=== PATIENT | male | born 1940 | race Caucasian/White ===

== ENCOUNTER 2020-11-15 00:48 | Inpatient (IN) | payer MEDICARE, BC ==
[2020-11-15] MEDS ORDERED: Ondansetron ODT 4 MG TAB PO PRN (02:01)
[2020-11-15] MEDS ORDERED: Acetaminophen 325 MG TAB PO PRN (02:01)
[2020-11-15] MEDS ORDERED: Potassium Chloride 20 MEQ TAB PO SCH (02:15)
[2020-11-15] MEDS ORDERED: hydrOXYzine 25 MG TAB PO PRN (03:24)
[2020-11-15 05:15] LABS: #Basophils 0.1 thou/uL (0.0-0.2); #Eosinphils 0.4 thou/uL (0.0-0.7); #Monocytes 0.6 thou/uL (0.11-0.59); #Neutrophils 6.1 thou/uL (1.40-6.50); %Basophils 0.8 % (0.0-1.0); %Eosinophils 4.7 % (0.0-10.0); %Lymphocytes 12.8 % (21.0-51.0); %Monocytes 7.6 % (0.0-10.0); %Neutrophils 74.2 % (42.0-75.0); Hemoglobin 11.4 g/dL (14.0-18.0); Mean Corpuscular HGB CONC 33.2 g/dL (32.0-36.0); Mean Corpuscular Hemoglobin 33.9 pg (27.0-31.0); Mean Platelet Volume 8.3 fL (7.4-10.4); Platelet Count 159 thou/uL (130-400); Red Blood Cell (RBC) Count 3.36 mill/uL (4.70-6.10); White Blood Cell (WBC) Count 8.2 thou/uL (4.8-10.8)
[2020-11-15 05:39] LABS: Anion Gap 13 mmol/L (10-20); BUN (Urea Nitrogen) 8 mg/dL (8.4-25.7); Calc. Creatinine Clearance 125 mL/min (70-130); Carbon Dioxide 21 mmol/L (23-31); Chloride 110 mmol/L (98-107); Glucose 92 mg/dL (83-110); Magnesium 1.7 mg/dL (1.6-2.6); Phosphorus 2.9 mg/dL (2.3-4.7); Potassium 3.5 mmol/L (3.5-5.1); Sodium 140 mmol/L (136-145)
[2020-11-15 06:03] LABS: Thyroid Stimulating Hormone 1.8261 uIU/mL (0.35-4.94)
[2020-11-15] MEDS: Lisinopril 20 MG TAB PO SCH ×2 (09:07→21:45)
[2020-11-15] MEDS: Aspirin 81 mg Enteric Coated Tablet PO SCH (09:07)
[2020-11-15] MEDS: Cyanocobalamin (Vitamin B-12) 1,000 MCG TAB PO SCH (09:07)
[2020-11-15] MEDS: Rosuvastatin 10 MG TAB PO SCH (09:07)
[2020-11-15] MEDS: Apixaban 5 MG TAB PO SCH ×2 (09:08→21:45)
[2020-11-15] MEDS: Folic Acid 1 MG TAB PO SCH (09:08)
[2020-11-15] MEDS: Multivitamin W/ Minerals 1 TAB PO SCH (09:08)
[2020-11-15] MEDS: Lactated Ringer's 1,000 ML IV SCH (18:30)
[2020-11-15] MEDS: Tamsulosin HCl 0.4 MG CAP PO SCH (21:46)
[2020-11-16] MEDS: Lactated Ringer's 1,000 ML IV SCH ×3 (02:57→23:34)
[2020-11-16] MEDS: Rosuvastatin 10 MG TAB PO SCH (09:14)
[2020-11-16] MEDS: Multivitamin W/ Minerals 1 TAB PO SCH (09:14)
[2020-11-16] MEDS: Lisinopril 20 MG TAB PO SCH ×2 (09:14→21:54)
[2020-11-16] MEDS: Apixaban 5 MG TAB PO SCH ×2 (09:15→21:55)
[2020-11-16] MEDS: Aspirin 81 mg Enteric Coated Tablet PO SCH (09:15)
[2020-11-16] MEDS: Folic Acid 1 MG TAB PO SCH (09:15)
[2020-11-16] MEDS: Cyanocobalamin (Vitamin B-12) 1,000 MCG TAB PO SCH (09:15)
[2020-11-16] MEDS: Tamsulosin HCl 0.4 MG CAP PO SCH (21:54)
[2020-11-17] MEDS: Lactated Ringer's 1,000 ML IV SCH ×2 (09:38→09:42)
[2020-11-17] MEDS: Cyanocobalamin (Vitamin B-12) 1,000 MCG TAB PO SCH (09:39)
[2020-11-17] MEDS: Lisinopril 20 MG TAB PO SCH ×2 (09:39→21:03)
[2020-11-17] MEDS: Aspirin 81 mg Enteric Coated Tablet PO SCH (09:39)
[2020-11-17] MEDS: Apixaban 5 MG TAB PO SCH ×2 (09:39→21:03)
[2020-11-17] MEDS: Rosuvastatin 10 MG TAB PO SCH (09:39)
[2020-11-17] MEDS: Folic Acid 1 MG TAB PO SCH (09:39)
[2020-11-17] MEDS: Multivitamin W/ Minerals 1 TAB PO SCH (09:39)
[2020-11-17] MEDS: Carvedilol 6.25 MG TAB PO SCH (16:56)
[2020-11-17] MEDS ORDERED: Pepto Bismol Chew TAB PO PRN (19:13)
[2020-11-17] MEDS: Tamsulosin HCl 0.4 MG CAP PO SCH (21:03)
[2020-11-18] MEDS: Carvedilol 6.25 MG TAB PO SCH ×2 (08:51→16:19)
[2020-11-18] MEDS: Cyanocobalamin (Vitamin B-12) 1,000 MCG TAB PO SCH (08:51)
[2020-11-18] MEDS: Aspirin 81 mg Enteric Coated Tablet PO SCH (08:51)
[2020-11-18] MEDS: Apixaban 5 MG TAB PO SCH ×2 (08:51→20:15)
[2020-11-18] MEDS: Folic Acid 1 MG TAB PO SCH (08:51)
[2020-11-18] MEDS: Lisinopril 20 MG TAB PO SCH ×2 (08:52→20:15)
[2020-11-18] MEDS: Multivitamin W/ Minerals 1 TAB PO SCH (08:52)
[2020-11-18] MEDS: Rosuvastatin 10 MG TAB PO SCH (08:52)
[2020-11-18] MEDS: Tamsulosin HCl 0.4 MG CAP PO SCH (20:15)
[2020-11-19 04:54] LABS: #Eosinphils 0.6 thou/uL (0.0-0.7); #Lymphocytes 1.1 thou/uL (1.20-3.40); #Monocytes 0.6 thou/uL (0.11-0.59); #Neutrophils 3.8 thou/uL (1.40-6.50); %Basophils 0.5 % (0.0-1.0); %Eosinophils 8.9 % (0.0-10.0); %Lymphocytes 18.4 % (21.0-51.0); %Monocytes 10.2 % (0.0-10.0); Hemoglobin 10.8 g/dL (14.0-18.0); Mean Corpuscular Hemoglobin 33.8 pg (27.0-31.0); Mean Platelet Volume 8.2 fL (7.4-10.4); Platelet Count 179 thou/uL (130-400); RBC Distribution Width 11.7 % (11.5-14.5); White Blood Cell (WBC) Count 6.2 thou/uL (4.8-10.8)
[2020-11-19 05:32] LABS: Anion Gap 11 mmol/L (10-20); BUN (Urea Nitrogen) 7 mg/dL (8.4-25.7); Calc. Creatinine Clearance 127 mL/min (70-130); Calcium 7.8 mg/dL (7.8-10.44); Carbon Dioxide 25 mmol/L (23-31); Chloride 106 mmol/L (98-107); Glucose 107 mg/dL (83-110); Sodium 139 mmol/L (136-145)
[2020-11-19 05:35] LABS: Potassium 2.8 mmol/L (3.5-5.1)
[2020-11-19] MEDS ORDERED: Potassium Chloride 20 MEQ TAB PO SCH ×2 (06:15→08:00)
[2020-11-19] MEDS ORDERED: Potassium Chloride 40 MEQ in Premix Bag 1 BAG IVPB SCH (06:15)
[2020-11-19] MEDS: Carvedilol 6.25 MG TAB PO SCH ×2 (08:11→16:32)
[2020-11-19] MEDS: Cyanocobalamin (Vitamin B-12) 1,000 MCG TAB PO SCH (08:12)
[2020-11-19] MEDS: Lisinopril 20 MG TAB PO SCH ×2 (08:12→21:17)
[2020-11-19] MEDS: Folic Acid 1 MG TAB PO SCH (08:12)
[2020-11-19] MEDS: Aspirin 81 mg Enteric Coated Tablet PO SCH (08:12)
[2020-11-19] MEDS: Apixaban 5 MG TAB PO SCH ×2 (08:12→21:17)
[2020-11-19] MEDS: Multivitamin W/ Minerals 1 TAB PO SCH (08:13)
[2020-11-19] MEDS: Rosuvastatin 10 MG TAB PO SCH (08:13)
[2020-11-19] MEDS ORDERED: Magnesium 2 GM/50 ML 2 GM in Premix Bag 1 BAG IVPB SCH (13:00)
[2020-11-19 15:38] LABS: Anion Gap 12 mmol/L (10-20); BUN (Urea Nitrogen) 7 mg/dL (8.4-25.7); Calc. Creatinine Clearance 115 mL/min (70-130); Calcium 8.2 mg/dL (7.8-10.44); Carbon Dioxide 23 mmol/L (23-31); Chloride 107 mmol/L (98-107); Glucose 157 mg/dL (83-110); Potassium 3.8 mmol/L (3.5-5.1); Sodium 138 mmol/L (136-145)
[2020-11-19] MEDS: Tamsulosin HCl 0.4 MG CAP PO SCH (21:17)
[2020-11-20 08:57] LABS: Anion Gap 10 mmol/L (10-20); BUN (Urea Nitrogen) 6 mg/dL (8.4-25.7); Calc. Creatinine Clearance 133 mL/min (70-130); Carbon Dioxide 26 mmol/L (23-31); Chloride 107 mmol/L (98-107); Glucose 108 mg/dL (83-110); Magnesium 1.7 mg/dL (1.6-2.6); Potassium 3.4 mmol/L (3.5-5.1); Sodium 140 mmol/L (136-145)
[2020-11-20] MEDS: Cyanocobalamin (Vitamin B-12) 1,000 MCG TAB PO SCH (09:16)
[2020-11-20] MEDS: Aspirin 81 mg Enteric Coated Tablet PO SCH (09:16)
[2020-11-20] MEDS: Multivitamin W/ Minerals 1 TAB PO SCH (09:16)
[2020-11-20] MEDS: Rosuvastatin 10 MG TAB PO SCH (09:16)
[2020-11-20] MEDS: Carvedilol 6.25 MG TAB PO SCH ×2 (09:16→16:39)
[2020-11-20] MEDS: Folic Acid 1 MG TAB PO SCH (09:16)
[2020-11-20] MEDS: Lisinopril 20 MG TAB PO SCH ×2 (09:16→20:42)
[2020-11-20] MEDS: Apixaban 5 MG TAB PO SCH ×2 (09:17→20:41)
[2020-11-20 09:58] VITALS: BMI 25.5
[2020-11-20] MEDS ORDERED: Potassium Chloride 20 MEQ TAB PO SCH (11:30)
[2020-11-20] MEDS: Tamsulosin HCl 0.4 MG CAP PO SCH (20:41)
[2020-11-21 07:34] LABS: Anion Gap 9 mmol/L (10-20); BUN (Urea Nitrogen) 5 mg/dL (8.4-25.7); Calc. Creatinine Clearance 128 mL/min (70-130); Calcium 8.1 mg/dL (7.8-10.44); Carbon Dioxide 26 mmol/L (23-31); Chloride 108 mmol/L (98-107); Glucose 97 mg/dL (83-110); Potassium 3.7 mmol/L (3.5-5.1); Sodium 139 mmol/L (136-145)
[2020-11-21] MEDS: Apixaban 5 MG TAB PO SCH (08:43)
[2020-11-21] MEDS: Folic Acid 1 MG TAB PO SCH (08:43)
[2020-11-21] MEDS: Cyanocobalamin (Vitamin B-12) 1,000 MCG TAB PO SCH (08:43)
[2020-11-21] MEDS: Rosuvastatin 10 MG TAB PO SCH (08:43)
[2020-11-21] MEDS: Lisinopril 20 MG TAB PO SCH (08:43)
[2020-11-21] MEDS: Carvedilol 6.25 MG TAB PO SCH (08:43)
[2020-11-21] MEDS: Multivitamin W/ Minerals 1 TAB PO SCH (08:43)
[2020-11-21] MEDS: Aspirin 81 mg Enteric Coated Tablet PO SCH (08:43)
[2020-11-21 15:13] VITALS: BP 156/68; TEMP 98.4
== END 2020-11-21 16:10 | DRG 558 ==
LOC: 2SW 00:48 → 2NO 11-16 14:18 → OBSVTOIN 11-17 11:06
PROVIDERS: ADMIT Family Medicine; ATTEND Family Medicine
DX: M62.82 Rhabdomyolysis (principal); R53.81 Other malaise; I10 Essential (primary) hypertension; I25.10 Atherosclerotic heart disease of native coronary artery without angina pectoris; Z66 Do not resuscitate; R19.7 Diarrhea, unspecified; E83.42 Hypomagnesemia; E78.5 Hyperlipidemia, unspecified; Z96.653 Presence of artificial knee joint, bilateral; M17.0 Bilateral primary osteoarthritis of knee; E87.6 Hypokalemia; F10.10 Alcohol abuse, uncomplicated; I48.91 Unspecified atrial fibrillation; R79.89 Other specified abnormal findings of blood chemistry; D53.9 Nutritional anemia, unspecified; Z95.1 Presence of aortocoronary bypass graft; Z98.1 Arthrodesis status; Z79.82 Long term (current) use of aspirin; Z79.01 Long term (current) use of anticoagulants; Z79.899 Other long term (current) drug therapy; Z87.891 Personal history of nicotine dependence; Z86.73 Personal history of transient ischemic attack (TIA), and cerebral infarction without residual deficits
CPT/HCPCS: 36415; 80048; 82550; 82607; 82746; 83735; 84100; 84443; 85025; 85652; 86140; 87324; 87449; 87493; G0378; J3475; J3490

== ENCOUNTER 2021-03-09 16:19 | Inpatient (IN) | payer MEDICARE, BC ==
[2021-03-09 16:27] VITALS: BMI 23.8
[2021-03-09 17:02] LABS: Hemoglobin 6.6 g/dL (14.0-18.0)
[2021-03-09] MEDS ORDERED: Acetaminophen 325 MG TAB PO PRN (17:05)
[2021-03-09] MEDS ORDERED: Potassium Chloride 20 MEQ TAB PO SCH (17:30)
[2021-03-09] MEDS ORDERED: FLU VACC QS2021-22(65YR UP)/PF 240 MCG/0.7 ML SYRINGE IM ONE (17:45)
[2021-03-09] MEDS ORDERED: Potassium Chloride 20 MEQ in Premix Bag 1 BAG IVPB SCH (18:00)
[2021-03-09] MEDS: Pantoprazole 40 MG VIAL IVP SCH (20:57)
[2021-03-09] MEDS: Sodium Chloride 0.9% 1,000 ML IV SCH (21:44)
[2021-03-09] MEDS ORDERED: hydrOXYzine 25 MG TAB PO PRN (22:03)
[2021-03-10 05:40] LABS: Hemoglobin 7.9 g/dL (14.0-18.0); Mean Corpuscular HGB CONC 33.4 g/dL (32.0-36.0); Mean Corpuscular Hemoglobin 30.6 pg (27.0-31.0); Mean Corpuscular Volume 91.6 fL (78.0-98.0); Mean Platelet Volume 9.2 fL (7.4-10.4); Platelet Count 262 thou/uL (130-400); RBC Distribution Width 13.3 % (11.5-14.5); Red Blood Cell (RBC) Count 2.58 mill/uL (4.70-6.10); White Blood Cell (WBC) Count 8.5 thou/uL (4.8-10.8)
[2021-03-10 05:50] LABS: INR-International Normal Ratio 1.3; PTT 58.4 sec (22.9-36.1); Prothrombin Time 16.8 sec (12.0-14.7)
[2021-03-10 06:01] LABS: Anion Gap 10 mmol/L (10-20); BUN (Urea Nitrogen) 18 mg/dL (8.4-25.7); Calc. Creatinine Clearance 85 mL/min (70-130); Calcium 8.1 mg/dL (7.8-10.44); Carbon Dioxide 21 mmol/L (23-31); Chloride 114 mmol/L (98-107); Glucose 96 mg/dL (83-110); Potassium 3.6 mmol/L (3.5-5.1); Sodium 141 mmol/L (136-145)
[2021-03-10 07:42] LABS: Hemoglobin 7.9 g/dL (14.0-18.0); Mean Corpuscular HGB CONC 34.4 g/dL (32.0-36.0); Mean Corpuscular Hemoglobin 31.8 pg (27.0-31.0); Mean Corpuscular Volume 92.4 fL (78.0-98.0); Mean Platelet Volume 8.4 fL (7.4-10.4); Platelet Count 221 thou/uL (130-400); RBC Distribution Width 13.5 % (11.5-14.5)
[2021-03-10] MEDS: Rosuvastatin 10 MG TAB PO SCH ×2 (08:41→11:54)
[2021-03-10] MEDS: Cyanocobalamin (Vitamin B-12) 1,000 MCG TAB PO SCH ×2 (08:41→11:54)
[2021-03-10] MEDS: Amlodipine 10 MG TAB PO SCH ×2 (08:41→11:54)
[2021-03-10] MEDS: Carvedilol 6.25 MG TAB PO SCH ×3 (08:41→17:09)
[2021-03-10] MEDS: Pantoprazole 40 MG VIAL IVP SCH ×2 (08:42→11:55)
[2021-03-10] MEDS: Lisinopril 20 MG TAB PO SCH ×3 (08:42→20:35)
[2021-03-10] MEDS: Multivitamin W/ Minerals 1 TAB PO SCH ×2 (08:42→11:54)
[2021-03-10] MEDS: Folic Acid 1 MG TAB PO SCH ×2 (08:42→11:54)
[2021-03-10] MEDS ORDERED: PROPOFOL 200 MG/20 ML VIAL ONE (10:10)
[2021-03-10] MEDS ORDERED: Promethazine HCl 25 MG/ML VIAL IVPB PRN (10:35)
[2021-03-10] MEDS ORDERED: Ondansetron HCl/PF 4 MG/2 ML Vial IVP PRN (10:35)
[2021-03-10] MEDS ORDERED: Promethazine HCl 25 MG/ML VIAL IM PRN (10:35)
[2021-03-10] MEDS ORDERED: Sodium Chloride 0.9% 10 ML ONE (10:46)
[2021-03-10] MEDS: Sodium Chloride 0.9% 1,000 ML IV SCH ×2 (11:54→23:52)
[2021-03-10] MEDS: Tamsulosin HCl 0.4 MG CAP PO SCH (20:35)
[2021-03-10] MEDS: Melatonin 3 MG TAB PO SCH (20:35)
[2021-03-11 05:22] LABS: Hemoglobin 8.8 g/dL (14.0-18.0); Mean Corpuscular HGB CONC 35.4 g/dL (32.0-36.0); Mean Corpuscular Hemoglobin 32.6 pg (27.0-31.0); Mean Platelet Volume 8.9 fL (7.4-10.4); Platelet Count 257 thou/uL (130-400); RBC Distribution Width 13.8 % (11.5-14.5); Red Blood Cell (RBC) Count 2.71 mill/uL (4.70-6.10); White Blood Cell (WBC) Count 8.7 thou/uL (4.8-10.8)
[2021-03-11 05:36] LABS: Anion Gap 11 mmol/L (10-20); BUN (Urea Nitrogen) 13 mg/dL (8.4-25.7); Calc. Creatinine Clearance 100 mL/min (70-130); Calcium 7.8 mg/dL (7.8-10.44); Carbon Dioxide 19 mmol/L (23-31); Chloride 114 mmol/L (98-107); Glucose 94 mg/dL (83-110); Sodium 140 mmol/L (136-145)
[2021-03-11] MEDS: Rosuvastatin 10 MG TAB PO SCH (09:14)
[2021-03-11] MEDS: Multivitamin W/ Minerals 1 TAB PO SCH (09:14)
[2021-03-11] MEDS: Carvedilol 6.25 MG TAB PO SCH ×2 (09:14→18:51)
[2021-03-11] MEDS: Amlodipine 10 MG TAB PO SCH (09:14)
[2021-03-11] MEDS: Folic Acid 1 MG TAB PO SCH (09:15)
[2021-03-11] MEDS: Lisinopril 20 MG TAB PO SCH ×2 (09:15→21:32)
[2021-03-11] MEDS: Cyanocobalamin (Vitamin B-12) 1,000 MCG TAB PO SCH (09:15)
[2021-03-11] MEDS ORDERED: Iopamidol-370 76% 500 ML 1 ML ONE (10:58)
[2021-03-11] MEDS: Sodium Chloride 0.9% 1,000 ML IV SCH (12:53)
[2021-03-11] MEDS ORDERED: Lidocaine 1% w/Epinephrine 1:100K 20 ML VIAL IJ SCH (16:00)
[2021-03-11] MEDS: Tamsulosin HCl 0.4 MG CAP PO SCH (21:32)
[2021-03-11] MEDS: Melatonin 3 MG TAB PO SCH (21:32)
[2021-03-12] MEDS: Sodium Chloride 0.9% 1,000 ML IV SCH (02:10)
[2021-03-12 05:06] LABS: Hemoglobin 7.1 g/dL (14.0-18.0); Mean Corpuscular HGB CONC 32.3 g/dL (32.0-36.0); Mean Corpuscular Hemoglobin 30.4 pg (27.0-31.0); Mean Platelet Volume 8.5 fL (7.4-10.4); Platelet Count 232 thou/uL (130-400); Red Blood Cell (RBC) Count 2.34 mill/uL (4.70-6.10); White Blood Cell (WBC) Count 9.9 thou/uL (4.8-10.8)
[2021-03-12 05:21] LABS: Anion Gap 9 mmol/L (10-20); BUN (Urea Nitrogen) 10 mg/dL (8.4-25.7); Calc. Creatinine Clearance 94 mL/min (70-130); Calcium 7.4 mg/dL (7.8-10.44); Carbon Dioxide 20 mmol/L (23-31); Chloride 113 mmol/L (98-107); Glucose 184 mg/dL (83-110); Potassium 3.6 mmol/L (3.5-5.1); Sodium 138 mmol/L (136-145)
[2021-03-12 08:35] LABS: Reticulocyte Count 3.7 % (0.5-1.5)
[2021-03-12] MEDS: Folic Acid 1 MG TAB PO SCH (08:39)
[2021-03-12] MEDS: Multivitamin W/ Minerals 1 TAB PO SCH (08:39)
[2021-03-12] MEDS: Carvedilol 6.25 MG TAB PO SCH ×2 (08:39→16:44)
[2021-03-12] MEDS: Rosuvastatin 10 MG TAB PO SCH (08:39)
[2021-03-12] MEDS: Amlodipine 10 MG TAB PO SCH (08:39)
[2021-03-12] MEDS: Cyanocobalamin (Vitamin B-12) 1,000 MCG TAB PO SCH (08:40)
[2021-03-12] MEDS: Lisinopril 20 MG TAB PO SCH ×2 (08:40→20:29)
[2021-03-12] MEDS: Melatonin 3 MG TAB PO SCH (20:28)
[2021-03-12] MEDS: Tamsulosin HCl 0.4 MG CAP PO SCH (20:29)
[2021-03-13 05:09] LABS: Hemoglobin 7.7 g/dL (14.0-18.0); Mean Corpuscular HGB CONC 33.8 g/dL (32.0-36.0); Mean Corpuscular Volume 91.5 fL (78.0-98.0); Mean Platelet Volume 8.6 fL (7.4-10.4); Platelet Count 246 thou/uL (130-400); RBC Distribution Width 14.2 % (11.5-14.5); Red Blood Cell (RBC) Count 2.48 mill/uL (4.70-6.10); White Blood Cell (WBC) Count 9.3 thou/uL (4.8-10.8)
[2021-03-13 05:22] LABS: Anion Gap 10 mmol/L (10-20); BUN (Urea Nitrogen) 11 mg/dL (8.4-25.7); Calc. Creatinine Clearance 100 mL/min (70-130); Calcium 7.5 mg/dL (7.8-10.44); Carbon Dioxide 20 mmol/L (23-31); Chloride 112 mmol/L (98-107); Glucose 106 mg/dL (83-110); Potassium 3.2 mmol/L (3.5-5.1); Sodium 139 mmol/L (136-145)
[2021-03-13] MEDS: Multivitamin W/ Minerals 1 TAB PO SCH (08:49)
[2021-03-13] MEDS: Cyanocobalamin (Vitamin B-12) 1,000 MCG TAB PO SCH (08:49)
[2021-03-13] MEDS: Amlodipine 10 MG TAB PO SCH (08:49)
[2021-03-13] MEDS: Rosuvastatin 10 MG TAB PO SCH (08:49)
[2021-03-13] MEDS: Lisinopril 20 MG TAB PO SCH ×2 (08:49→21:15)
[2021-03-13] MEDS: Calcium Carbonate 600 MG + Vit D TAB PO SCH (08:49)
[2021-03-13] MEDS: Carvedilol 6.25 MG TAB PO SCH ×2 (08:49→18:32)
[2021-03-13] MEDS: Folic Acid 1 MG TAB PO SCH (08:49)
[2021-03-13] MEDS ORDERED: Potassium Chloride 20 MEQ TAB PO SCH (10:00)
[2021-03-13 15:10] LABS: Hemoglobin 7.7 g/dL (14.0-18.0)
[2021-03-13] MEDS ORDERED: Iron, Sodium Ferric Gluconate 250 MG in Sodium Chloride 0.9% 250 ML 250 ML IVPB SCH (18:00)
[2021-03-13] MEDS: Melatonin 3 MG TAB PO SCH (21:15)
[2021-03-13] MEDS: Tamsulosin HCl 0.4 MG CAP PO SCH (21:16)
[2021-03-14 05:13] LABS: Hemoglobin 7.5 g/dL (14.0-18.0); Mean Corpuscular HGB CONC 32.3 g/dL (32.0-36.0); Mean Corpuscular Hemoglobin 29.9 pg (27.0-31.0); Mean Corpuscular Volume 92.6 fL (78.0-98.0); Mean Platelet Volume 8.6 fL (7.4-10.4); Platelet Count 237 thou/uL (130-400); RBC Distribution Width 14.5 % (11.5-14.5); Red Blood Cell (RBC) Count 2.49 mill/uL (4.70-6.10)
[2021-03-14 05:29] LABS: Anion Gap 10 mmol/L (10-20); BUN (Urea Nitrogen) 11 mg/dL (8.4-25.7); Calc. Creatinine Clearance 95 mL/min (70-130); Calcium 7.6 mg/dL (7.8-10.44); Carbon Dioxide 20 mmol/L (23-31); Chloride 112 mmol/L (98-107); Glucose 135 mg/dL (83-110); Potassium 3.8 mmol/L (3.5-5.1); Sodium 138 mmol/L (136-145)
[2021-03-14 05:31] LABS: ALT (SGPT) 7 U/L (8-55); AST (SGOT) 16 U/L (5-34); Albumin 2.1 g/dL (3.4-4.8); Alkaline Phosphatase 71 U/L (40-110); Bilirubin, Direct 0.1 mg/dL (0.1-0.3); Bilirubin, Total 0.2 mg/dL (0.2-1.2); Protein, Total 4.6 g/dL (5.8-8.1)
[2021-03-14 07:12] LABS: Magnesium 1.7 mg/dL (1.6-2.6); Phosphorus 2.5 mg/dL (2.3-4.7)
[2021-03-14] MEDS: Multivitamin W/ Minerals 1 TAB PO SCH (09:09)
[2021-03-14] MEDS: Carvedilol 6.25 MG TAB PO SCH ×2 (09:09→17:20)
[2021-03-14] MEDS: Cyanocobalamin (Vitamin B-12) 1,000 MCG TAB PO SCH (09:09)
[2021-03-14] MEDS: Amlodipine 10 MG TAB PO SCH (09:10)
[2021-03-14] MEDS: Lisinopril 20 MG TAB PO SCH ×2 (09:10→20:28)
[2021-03-14] MEDS: Calcium Carbonate 600 MG + Vit D TAB PO SCH (09:10)
[2021-03-14] MEDS: Rosuvastatin 10 MG TAB PO SCH (09:10)
[2021-03-14] MEDS: Folic Acid 1 MG TAB PO SCH (09:10)
[2021-03-14] MEDS ORDERED: Ferrous Fumarate 324 MG TAB PO SCH (10:00)
[2021-03-14] MEDS: Tamsulosin HCl 0.4 MG CAP PO SCH (20:28)
[2021-03-14] MEDS: Melatonin 3 MG TAB PO SCH (20:28)
[2021-03-15 04:52] LABS: Hemoglobin 7.5 g/dL (14.0-18.0); Mean Corpuscular HGB CONC 33.5 g/dL (32.0-36.0); Mean Corpuscular Hemoglobin 31.1 pg (27.0-31.0); Mean Corpuscular Volume 92.9 fL (78.0-98.0); Mean Platelet Volume 8.6 fL (7.4-10.4); Platelet Count 228 thou/uL (130-400); RBC Distribution Width 14.7 % (11.5-14.5); White Blood Cell (WBC) Count 8.8 thou/uL (4.8-10.8)
[2021-03-15 05:14] LABS: Anion Gap 11 mmol/L (10-20); BUN (Urea Nitrogen) 10 mg/dL (8.4-25.7); Calc. Creatinine Clearance 104 mL/min (70-130); Calcium 7.7 mg/dL (7.8-10.44); Carbon Dioxide 21 mmol/L (23-31); Chloride 113 mmol/L (98-107); Glucose 99 mg/dL (83-110); Potassium 3.8 mmol/L (3.5-5.1); Sodium 141 mmol/L (136-145)
[2021-03-15] MEDS ORDERED: Magnesium 2 GM/50 ML 2 GM in Premix Bag 1 BAG IVPB SCH (05:30)
[2021-03-15 07:43] VITALS: TEMP 98.3
[2021-03-15] MEDS ORDERED: Ferrous Fumarate 324 MG TAB PO SCH (08:00)
[2021-03-15] MEDS: Rosuvastatin 10 MG TAB PO SCH (08:41)
[2021-03-15] MEDS: Amlodipine 10 MG TAB PO SCH (08:41)
[2021-03-15] MEDS: Carvedilol 6.25 MG TAB PO SCH (08:42)
[2021-03-15] MEDS: Cyanocobalamin (Vitamin B-12) 1,000 MCG TAB PO SCH (08:42)
[2021-03-15] MEDS: Multivitamin W/ Minerals 1 TAB PO SCH (08:42)
[2021-03-15] MEDS: Lisinopril 20 MG TAB PO SCH (08:42)
[2021-03-15] MEDS: Calcium Carbonate 600 MG + Vit D TAB PO SCH (08:42)
[2021-03-15] MEDS: Folic Acid 1 MG TAB PO SCH (08:42)
[2021-03-15 11:29] VITALS: BP 109/53
== END 2021-03-15 13:40 | disposition home health service (06) | DRG 186 ==
LOC: 2NO 16:19
PROVIDERS: ADMIT Family Medicine; ATTEND Family Medicine
PROC: 30243N1 Transfusion of Nonautologous Red Blood Cells into Central Vein, Percutaneous Approach (ICD-10-PCS; principal; 2021-03-09)
PROC: 0DB68ZX Excision of Stomach, Via Natural or Artificial Opening Endoscopic, Diagnostic (ICD-10-PCS; 2021-03-10)
PROC: 0W9930Z Drainage of Right Pleural Cavity with Drainage Device, Percutaneous Approach (ICD-10-PCS; 2021-03-11)
DX: J94.8 Other specified pleural conditions (principal); K25.4 Chronic or unspecified gastric ulcer with hemorrhage; K26.4 Chronic or unspecified duodenal ulcer with hemorrhage; I48.20 Chronic atrial fibrillation, unspecified; D62 Acute posthemorrhagic anemia; Z66 Do not resuscitate; J90 Pleural effusion, not elsewhere classified; N40.0 Benign prostatic hyperplasia without lower urinary tract symptoms; F17.210 Nicotine dependence, cigarettes, uncomplicated; E87.6 Hypokalemia; I10 Essential (primary) hypertension; I25.10 Atherosclerotic heart disease of native coronary artery without angina pectoris; K21.9 Gastro-esophageal reflux disease without esophagitis; E78.5 Hyperlipidemia, unspecified; F32.9 Major depressive disorder, single episode, unspecified; F32.A Depression, unspecified; E53.8 Deficiency of other specified B group vitamins; T39.015A Adverse effect of aspirin, initial encounter; T45.515A Adverse effect of anticoagulants, initial encounter; M48.02 Spinal stenosis, cervical region; R91.1 Solitary pulmonary nodule; E83.51 Hypocalcemia; Z91.81 History of falling; Z95.1 Presence of aortocoronary bypass graft; Z81.8 Family history of other mental and behavioral disorders; Z86.73 Personal history of transient ischemic attack (TIA), and cerebral infarction without residual deficits; Z79.01 Long term (current) use of anticoagulants; Z79.82 Long term (current) use of aspirin; Z79.899 Other long term (current) drug therapy; J98.2 Interstitial emphysema
CPT/HCPCS: 36415; 36430; 71045; 71260; 80048; 80076; 82306; 82607; 82746; 83615; 83735; 84100; 85027; 85046; 85610; 85730; 86850; 86900; 86901; 87070; 87205; 88305; 88312; 94640; C9113; J2704; J2916; J3475; J3480; J7050; J7620; P9016; Q9967

== ENCOUNTER 2021-04-18 14:15 | Outpatient (CLI) | payer MEDICARE, BC | END 2021-04-18 14:16 | disposition home or self-care (01) | LOC: BICRAD 14:15 | PROVIDERS: ATTEND Urology | DX: N20.0 Calculus of kidney (principal) | CPT/HCPCS: 74018 ==

== ENCOUNTER 2021-05-03 12:06 | Outpatient (CLI) | payer MEDICARE, BC ==
[2021-05-03] MEDS ORDERED: Magnevist 469MG/ML 20 ML VIAL ONE (12:26)
== END 2021-05-03 12:07 | disposition home or self-care (01) ==
LOC: MRI 12:06
PROVIDERS: ATTEND Family Medicine
DX: I67.82 Cerebral ischemia (principal); I63.9 Cerebral infarction, unspecified; R41.82 Altered mental status, unspecified; I08.0 Rheumatic disorders of both mitral and aortic valves; I65.23 Occlusion and stenosis of bilateral carotid arteries; I67.89 Other cerebrovascular disease
CPT/HCPCS: 70553; 93306; 93880; A9579

== ENCOUNTER 2021-11-09 09:31 | Inpatient (IN) | payer MEDICARE, BC ==
[2021-11-09] MEDS ORDERED: Morphine 2 MG/ML VIAL SLOW IVP PRN (11:37)
[2021-11-09] MEDS ORDERED: Promethazine HCl 25 MG/ML VIAL IM PRN (11:37)
[2021-11-09] MEDS ORDERED: Ondansetron PF 4 MG/2 ML Vial IVP PRN (11:37)
[2021-11-09] MEDS ORDERED: hydrALAZINE 20 MG/ML VIAL SLOW IVP PRN (11:37)
[2021-11-09] MEDS ORDERED: Sodium Chloride 0.9% 1,000 ML IV SCH (11:45)
[2021-11-09] MEDS ORDERED: traMADol HCl 50 MG TAB PO PRN (11:48)
[2021-11-09] MEDS: Acetaminophen 325 MG TAB PO SCH ×3 (14:12→23:57)
[2021-11-09] MEDS: traMADol HCl 50 MG TAB PO SCH ×2 (14:12→18:28)
[2021-11-09] MEDS: Sodium Chloride 0.9% 1,000 ML IV SCH (14:13)
[2021-11-09 14:20] VITALS: BMI 23.7
[2021-11-09] MEDS: Ferrous Sulfate 325 MG TAB PO SCH (17:03)
[2021-11-09 17:52] LABS: Bilirubin Negative (Negative); Blood, Urine Trace (Negative); Clarity Clear (Clear); Glucose, Urine (Dipstick) Normal (Negative); Ketone, Urine Negative (Negative); Leukocyte 250 Leu/uL (Negative); Nitrite Negative (Negative); Protein, Urine (Dipstick) Negative (Neg-Trace); Specific Gravity, Urine 1.019 (1.002-1.036); Squamous Epithelial 0-3 HPF (0-3); Urobilinogen Normal mg/dL (Less than 2); WBC/HPF 21-50 HPF (0-3)
[2021-11-09 17:53] LABS: Bacteria/HPF 1+ HPF (None Seen); Urine Culture Reflex Yes Yes
[2021-11-09] MEDS ORDERED: HYDROcodone/Acetaminophen 5/325 mg Tablet PO PRN (18:52)
[2021-11-09] MEDS ORDERED: Furosemide 20 MG TAB PO PRN (18:52)
[2021-11-09] MEDS: Senokot S 8.6-50 MG TAB PO SCH (19:54)
[2021-11-09] MEDS: Melatonin 3 MG TAB PO SCH (19:54)
[2021-11-09] MEDS: valACYclovir 500 MG TAB PO SCH (19:54)
[2021-11-09] MEDS: Ascorbic Acid 500 mg Chewable Tablet PO SCH (19:55)
[2021-11-09] MEDS: Tamsulosin HCl 0.4 MG CAP PO SCH (19:55)
[2021-11-09] MEDS ORDERED: Famotidine 20 MG TAB PO SCH (21:00)
[2021-11-09] MEDS ORDERED: Acetaminophen 500 MG TAB PO SCH (23:59)
[2021-11-10] MEDS: Acetaminophen 325 MG TAB PO SCH ×4 (05:16→23:52)
[2021-11-10] MEDS: Levothyroxine Sodium 25 MCG TAB PO SCH (05:17)
[2021-11-10 06:56] LABS: #Eosinphils 0.7 thou/uL (0.0-0.7); #Lymphocytes 0.7 thou/uL (1.20-3.40); #Monocytes 0.5 thou/uL (0.11-0.59); #Neutrophils 4.1 thou/uL (1.40-6.50); %Basophils 0.8 % (0.0-1.0); %Eosinophils 11.6 % (0.0-10.0); %Monocytes 7.8 % (0.0-10.0); %Neutrophils 67.8 % (42.0-75.0); Hemoglobin 8.4 g/dL (14.0-18.0); Mean Corpuscular HGB CONC 31.5 g/dL (32.0-36.0); Mean Corpuscular Hemoglobin 30.2 pg (27.0-31.0); Mean Corpuscular Volume 95.9 fL (78.0-98.0); Mean Platelet Volume 7.1 fL (7.4-10.4); Platelet Count 277 thou/uL (130-400); RBC Distribution Width 16.9 % (11.5-14.5); Red Blood Cell (RBC) Count 2.79 mill/uL (4.70-6.10); White Blood Cell (WBC) Count 6.1 thou/uL (4.8-10.8)
[2021-11-10 07:08] LABS: INR-International Normal Ratio 1.2; Prothrombin Time 15.7 sec (12.0-14.7)
[2021-11-10 07:12] LABS: Anion Gap 13 mmol/L (10-20); BUN (Urea Nitrogen) 14 mg/dL (8.4-25.7); Calc. Creatinine Clearance 96 mL/min (70-130); Calcium 8.7 mg/dL (7.8-10.44); Carbon Dioxide 24 mmol/L (23-31); Chloride 106 mmol/L (98-107); Glucose 97 mg/dL (83-110); Potassium 4.5 mmol/L (3.5-5.1); Sodium 138 mmol/L (136-145)
[2021-11-10] MEDS: Ferrous Sulfate 325 MG TAB PO SCH ×2 (08:46→16:11)
[2021-11-10] MEDS: Sodium Chloride 0.9% 1,000 ML IV SCH ×2 (08:46→16:11)
[2021-11-10] MEDS: valACYclovir 500 MG TAB PO SCH ×3 (08:47→20:56)
[2021-11-10] MEDS ORDERED: Furosemide 20 MG TAB PO PRN (09:00)
[2021-11-10] MEDS ORDERED: Bupivacaine PF 0.5% 30 ML VIAL ONE (09:29)
[2021-11-10] MEDS ORDERED: EPINEPHrine 1 MG/ML AMP ONE (09:29)
[2021-11-10] MEDS ORDERED: Morphine 2 MG/ML VIAL SLOW IVP SCH (09:30)
[2021-11-10] MEDS ORDERED: Ketorolac Tromethamine 30 MG/ML VIAL IVP SCH (09:30)
[2021-11-10] MEDS: Senokot S 8.6-50 MG TAB PO SCH ×2 (10:26→20:56)
[2021-11-10] MEDS: Ascorbic Acid 500 mg Chewable Tablet PO SCH ×2 (10:26→20:56)
[2021-11-10] MEDS: Polyethylene Glycol 3350 17 GM Packet PO SCH (10:26)
[2021-11-10] MEDS: Rosuvastatin 10 MG TAB PO SCH (10:26)
[2021-11-10] MEDS ORDERED: CEFAZOLIN 2 GM VIAL ONE (10:32)
[2021-11-10] MEDS ORDERED: Sodium Chloride 0.9% 100 ML ONE ×2 (10:32→11:31)
[2021-11-10] MEDS ORDERED: Morphine 2 MG/ML VIAL ONE (10:32)
[2021-11-10] MEDS ORDERED: Fentanyl 100 MCG/2 ML VIAL ONE (10:47)
[2021-11-10] MEDS ORDERED: Midazolam HCl 2 mg/2 ml Vial ONE (11:11)
[2021-11-10] MEDS ORDERED: fentaNYL Citrate/PF 100 MCG/2 ML SYRINGE ONE (11:12)
[2021-11-10] MEDS ORDERED: HYDROmorphone 2 MG/ML VIAL ONE (11:29)
[2021-11-10] MEDS ORDERED: Tranexamic Acid 1,000 MG/10 ML VIAL ONE (11:30)
[2021-11-10] MEDS ORDERED: Morphine 4 MG/ML VIAL SLOW IVP PRN (12:24)
[2021-11-10] MEDS ORDERED: HYDROcodone/Acetaminophen 10/325 mg Tablet PO PRN ×2 (12:24)
[2021-11-10] MEDS ORDERED: Glycopyrrolate 0.2 MG/ML 5 ML SYRINGE ONE (12:27)
[2021-11-10] MEDS ORDERED: Rocuronium Bromide 10 MG/ML (10ML VIAL) ONE (12:27)
[2021-11-10] MEDS ORDERED: Lidocaine 1% PF 5 ML VIAL ONE (12:27)
[2021-11-10] MEDS ORDERED: ePHEDrine 50 MG/ML VIAL ONE (12:27)
[2021-11-10] MEDS ORDERED: Succinylcholine 200 MG/10 ml SYRINGE FS ONE (12:27)
[2021-11-10] MEDS ORDERED: Dexamethasone 20 MG/5 ML VIAL ONE (12:27)
[2021-11-10] MEDS ORDERED: PROPOFOL 200 MG/20 ML VIAL ONE (12:27)
[2021-11-10] MEDS ORDERED: Ondansetron PF 4 MG/2 ML Vial ONE (12:27)
[2021-11-10] MEDS ORDERED: PHENYLEPHRINE-NS 100 MCG/ML 10 ML SYRINGE ONE (12:27)
[2021-11-10] MEDS ORDERED: Communication Order-Pharmacy FS SCH (12:30)
[2021-11-10] MEDS ORDERED: HYDROcodone/Acetaminophen 5/325 mg Tablet PO PRN (13:09)
[2021-11-10] MEDS ORDERED: traMADol HCl 50 MG TAB PO SCH (13:15)
[2021-11-10] MEDS ORDERED: Sodium Chloride 0.9% 500 ML IV SCH (13:30)
[2021-11-10] MEDS ORDERED: Ondansetron HCl/PF 4 MG/2 ML Vial IVP PRN (13:48)
[2021-11-10] MEDS ORDERED: Meperidine HCl/PF 25 MG/ML VIAL SLOW IVP PRN (13:48)
[2021-11-10] MEDS ORDERED: Promethazine HCl 25 MG/ML VIAL IM PRN (13:48)
[2021-11-10] MEDS ORDERED: HYDROmorphone 2 MG/ML VIAL SLOW IVP PRN (13:48)
[2021-11-10] MEDS ORDERED: Promethazine HCl 25 MG/ML VIAL IVPB PRN (13:48)
[2021-11-10] MEDS ORDERED: TETANUS AND DIPHTHERIA TOX/PF 0.5 ML DISP.SYRIN IM SCH (14:00)
[2021-11-10] MEDS: Ibuprofen 200 MG TAB PO SCH ×2 (14:00→20:56)
[2021-11-10] MEDS ORDERED: Tranexamic Acid 1,000 MG/10 ML VIAL IVP SCH (15:00)
[2021-11-10] MEDS: CEFAZOLIN 2 GM in Sodium Chloride 0.9% 100 ML IVPB SCH (17:35)
[2021-11-10] MEDS: Aspirin 81 mg Enteric Coated Tablet PO SCH (20:55)
[2021-11-10] MEDS: Melatonin 3 MG TAB PO SCH (20:55)
[2021-11-10] MEDS: Tamsulosin HCl 0.4 MG CAP PO SCH (20:55)
[2021-11-11] MEDS: CEFAZOLIN 2 GM in Sodium Chloride 0.9% 100 ML IVPB SCH (01:52)
[2021-11-11] MEDS: Acetaminophen 325 MG TAB PO SCH ×4 (05:05→23:06)
[2021-11-11] MEDS: Levothyroxine Sodium 25 MCG TAB PO SCH (05:06)
[2021-11-11] MEDS: Ibuprofen 200 MG TAB PO SCH ×3 (05:06→21:28)
[2021-11-11 06:09] LABS: #Lymphocytes 0.6 thou/uL (1.20-3.40); #Monocytes 0.4 thou/uL (0.11-0.59); #Neutrophils 12.1 thou/uL (1.40-6.50); %Lymphocytes 4.5 % (21.0-51.0); %Monocytes 3.1 % (0.0-10.0); %Neutrophils 92.3 % (42.0-75.0); Hemoglobin 7.5 g/dL (14.0-18.0); Mean Corpuscular HGB CONC 30.7 g/dL (32.0-36.0); Mean Corpuscular Hemoglobin 29.2 pg (27.0-31.0); Mean Corpuscular Volume 95.1 fL (78.0-98.0); Mean Platelet Volume 7.4 fL (7.4-10.4); Platelet Count 298 thou/uL (130-400); RBC Distribution Width 16.7 % (11.5-14.5); Red Blood Cell (RBC) Count 2.55 mill/uL (4.70-6.10); White Blood Cell (WBC) Count 13.1 thou/uL (4.8-10.8)
[2021-11-11 06:27] LABS: ALT (SGPT) Less than 7 U/L (8-55); AST (SGOT) 17 U/L (5-34); Albumin 2.4 g/dL (3.4-4.8); Alkaline Phosphatase 52 U/L (40-110); Anion Gap 12 mmol/L (10-20); BUN (Urea Nitrogen) 16 mg/dL (8.4-25.7); Bilirubin, Total 0.2 mg/dL (0.2-1.2); Calc. Creatinine Clearance 88 mL/min (70-130); Calcium 8.3 mg/dL (7.8-10.44); Carbon Dioxide 23 mmol/L (23-31); Chloride 107 mmol/L (98-107); Globulin 3.3 g/dL (2.4-3.5); Glucose 137 mg/dL (83-110); Potassium 4.3 mmol/L (3.5-5.1); Protein, Total 5.7 g/dL (5.8-8.1); Sodium 138 mmol/L (136-145)
[2021-11-11] MEDS: Ascorbic Acid 500 mg Chewable Tablet PO SCH ×2 (08:48→21:29)
[2021-11-11] MEDS: Ferrous Sulfate 325 MG TAB PO SCH ×2 (08:48→17:27)
[2021-11-11] MEDS: Senokot S 8.6-50 MG TAB PO SCH ×2 (08:48→21:29)
[2021-11-11] MEDS: Aspirin 81 mg Enteric Coated Tablet PO SCH ×2 (08:48→21:28)
[2021-11-11] MEDS: Rosuvastatin 10 MG TAB PO SCH (08:49)
[2021-11-11] MEDS: valACYclovir 500 MG TAB PO SCH ×3 (08:49→21:29)
[2021-11-11] MEDS: Polyethylene Glycol 3350 17 GM Packet PO SCH (08:49)
[2021-11-11] MEDS ORDERED: Carvedilol 6.25 MG TAB PO SCH (15:30)
[2021-11-11] MEDS ORDERED: Lisinopril 20 MG TAB PO SCH (15:30)
[2021-11-11] MEDS: Tamsulosin HCl 0.4 MG CAP PO SCH (21:29)
[2021-11-11] MEDS: Melatonin 3 MG TAB PO SCH (21:29)
[2021-11-12] MEDS: Levothyroxine Sodium 25 MCG TAB PO SCH (05:44)
[2021-11-12] MEDS: Acetaminophen 325 MG TAB PO SCH (05:44)
[2021-11-12] MEDS: Ibuprofen 200 MG TAB PO SCH (05:44)
[2021-11-12] MEDS ORDERED: Carvedilol 6.25 MG TAB PO SCH (08:00)
[2021-11-12 08:23] VITALS: TEMP 98.2
[2021-11-12] MEDS ORDERED: Lisinopril 20 MG TAB PO SCH (09:00)
[2021-11-12] MEDS ORDERED: Apixaban 2.5 MG TAB PO SCH (09:00)
[2021-11-12] MEDS: Aspirin 81 mg Enteric Coated Tablet PO SCH (09:35)
[2021-11-12] MEDS: valACYclovir 500 MG TAB PO SCH (09:35)
[2021-11-12] MEDS: Ascorbic Acid 500 mg Chewable Tablet PO SCH (09:35)
[2021-11-12] MEDS: Rosuvastatin 10 MG TAB PO SCH (09:35)
[2021-11-12] MEDS: Ferrous Sulfate 325 MG TAB PO SCH (09:36)
[2021-11-12] MEDS: Senokot S 8.6-50 MG TAB PO SCH (09:36)
[2021-11-12] MEDS: Polyethylene Glycol 3350 17 GM Packet PO SCH (09:36)
[2021-11-12 12:18] VITALS: BP 122/61
== END 2021-11-12 13:30 | disposition home health service (06) | DRG 522 ==
LOC: ERS 09:31 → SURG A 11:21
PROVIDERS: ADMIT Surgery; ATTEND Surgery
PROC: 0SR90JZ Replacement of Right Hip Joint with Synthetic Substitute, Open Approach (ICD-10-PCS; principal; 2021-11-10)
DX: S72.001A Fracture of unspecified part of neck of right femur, initial encounter for closed fracture (principal); Z20.822 Contact with and (suspected) exposure to COVID-19; I10 Essential (primary) hypertension; E78.00 Pure hypercholesterolemia, unspecified; F03.90 Unspecified dementia, unspecified severity, without behavioral disturbance, psychotic disturbance, mood disturbance, and anxiety; F41.9 Anxiety disorder, unspecified; F32.A Depression, unspecified; F17.210 Nicotine dependence, cigarettes, uncomplicated; K21.9 Gastro-esophageal reflux disease without esophagitis; E03.9 Hypothyroidism, unspecified; I25.10 Atherosclerotic heart disease of native coronary artery without angina pectoris; Z95.1 Presence of aortocoronary bypass graft; Z79.82 Long term (current) use of aspirin; Z79.899 Other long term (current) drug therapy; Z79.01 Long term (current) use of anticoagulants
CPT/HCPCS: 36415; 80048; 80053; 81001; 85025; 85610; 85730; 86850; 86900; 86901; 87086; 93005; 93010; 99285; C1713; C1776; G0390; J0171; J0360; J0690; J1100; J1170; J2250; J2270; J2405; J2704; J3010; J3490; J7050; S0020; U0003; U0005

== ENCOUNTER 2023-07-02 12:29 | Outpatient (CLI) | payer MEDICARE, BC | END 2023-07-02 12:30 | disposition home or self-care (01) | LOC: CT 12:29 | PROVIDERS: ATTEND Internal Medicine Cardiovascular Disease | DX: I25.10 Atherosclerotic heart disease of native coronary artery without angina pectoris (principal); I48.19 Other persistent atrial fibrillation; J92.9 Pleural plaque without asbestos; J98.4 Other disorders of lung; Z91.81 History of falling; Z95.1 Presence of aortocoronary bypass graft | CPT/HCPCS: 71275; 82565 ==

== ENCOUNTER → 2023-10-07 | Day surgery (SDC) | payer MEDICARE, BC ==
[2023-10-06 12:22] VITALS: BMI 24.4
== END ==
LOC: SDC 05:55
PROVIDERS: ATTEND Internal Medicine Cardiovascular Disease
PROC: B24BZZ4 Ultrasonography of Heart with Aorta, Transesophageal (ICD-10-PCS; principal; 2023-10-07)
DX: I48.19 Other persistent atrial fibrillation (principal); W19.XXXA Unspecified fall, initial encounter; I08.1 Rheumatic disorders of both mitral and tricuspid valves
CPT/HCPCS: 93312; J2704

== ENCOUNTER 2024-03-04 08:36 | Day surgery (SDC) | payer MEDICARE, BC ==
[2024-03-03 11:01] VITALS: BMI 23.7
[2024-03-04] MEDS ORDERED: PROPOFOL 200 MG/20 ML VIAL ONE (10:20)
[2024-03-04] MEDS ORDERED: Lidocaine 1% PF 5 ML VIAL ONE (10:20)
== END 2024-03-04 11:11 | disposition home or self-care (01) ==
LOC: SDC 08:36
PROVIDERS: ATTEND Internal Medicine Cardiovascular Disease
PROC: B246ZZ4 Ultrasonography of Right and Left Heart, Transesophageal (ICD-10-PCS; principal; 2024-03-04)
DX: I48.19 Other persistent atrial fibrillation (principal); Z79.01 Long term (current) use of anticoagulants; Z95.818 Presence of other cardiac implants and grafts; Z79.82 Long term (current) use of aspirin; Z79.899 Other long term (current) drug therapy
CPT/HCPCS: 93312; J2704